=== PATIENT | male | born 1985 | race Caucasian/White ===

== ENCOUNTER 2022-01-24 02:04 | Emergency (ER) | payer SELFPAY ==
[2022-01-24] MEDS ORDERED: TETANUS & DIPHTHERIA TOX,ADULT 0.5 ML VIAL ONE (02:22)
[2022-01-24 03:05] LABS: Absolute Lymphocytes (CBC) 2.2 K/uL (0.7-4.9); Hematocrit 43.8 % (39.6-49.0); Lymphocytes % 12.3 % (15.3-44.8); MPV 8.4 fL (7.6-11.3); RBC Red Blood Cell Count 4.67 M/uL (4.33-5.43)
[2022-01-24 03:23] LABS: Potassium 3.5 mmol/L (3.5-5.1)
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
[2022-01-24 05:04] VITALS: TEMP 98.7
[2022-01-24 05:22] VITALS: BP 134/94; O2SAT 97
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
--- NOTE | 2022-01-25 13:36 | EKG ---
Test Date: 2022-01-24 Test Time: 02:20:51 Computer Graphics Illustrator: ISSA MEASUREMENT RESULTS: Intervals: Rate: 99 WI: 150 QRSD: 84 QT: 352 QTc: 451 [employer]: P: 59 WI: 150 QRS: 44 T: 7 INTERPRETIVE STATEMENTS: Sinus rhythm with frequent premature ventricular complexes Nonspecific ST and T wave abnormality Abnormal ECG Compared to ECG 04/02/2013 00:11:06 Ventricular premature complex(es) now present ST (T wave) deviation now present Sinus tachycardia no longer present Electronically Signed On 01-25-22 13:34:21 CDT by Beau Solis
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
== END 2022-01-24 04:55 | disposition short-term general hospital (02) ==
LOC: ER 02:04
DX: S06.5X0A Traumatic subdural hemorrhage without loss of consciousness, initial encounter (principal); Z23 Encounter for immunization
CPT/HCPCS: 36415; 70450; 70486; 71045; 72125; 76377; 80048; 80320; 85025; 85610; 85730; 86850; 86900; 86901; 90471; 90714; 93005; 99285; U0003